=== PATIENT | male | born 1970 | race Caucasian/White ===

== ENCOUNTER 2020-06-18 05:34 | Day surgery (SDC) | payer OTHER ==
[~2020-06-18] VITALS: Ht 167.6 cm; Wt 79.5 kg
[~2020-06-18 05:34] MED LIST: RINGERS SOLUTION,LACTATED 500 ML IV ONE
[2020-06-18] MEDS ORDERED: RINGERS SOLUTION,LACTATED 0 ML IV ONE (05:35)
[2020-06-18] MEDS ORDERED: PROPOFOL 1% 20 ML VIAL IVP ONE (05:35)
[2020-06-18] MEDS ORDERED: LIDOCAINE/PF 2% 5 ML VIAL IM ONE (05:35)
[2020-06-18] MEDS ORDERED: SODIUM CHLORIDE 0.9% 500 ML IV ONE ×2 (05:56→06:15)
[2020-06-18 06:03] LABS: COVID AG,FIA SOURCE NASOPHARYNGEAL
[2020-06-18 06:26] LABS: GLUCOMETER DEV NAME(LOC) SDS.; GLUCOSE,POINT OF CARE 111 MG/DL (70-110)
[2020-06-18] MEDS ORDERED: METO25 PO (06:50)
[2020-06-18] MEDS ORDERED: LISI-893 PO (06:50)
[2020-06-18] MEDS ORDERED: AMLO-258 PO (06:50)
[2020-06-18] MEDS ORDERED: LIDOCAINE/PF 1% 2 ML VIAL ONE (06:58)
== END 2020-06-18 08:20 | disposition home or self-care (01) ==
LOC: SURGERY 05:34
PROVIDERS: ATTEND Ophthalmology
DX: E11.39 Type 2 diabetes mellitus with other diabetic ophthalmic complication (principal); H40.10X3 Unspecified open-angle glaucoma, severe stage; E11.22 Type 2 diabetes mellitus with diabetic chronic kidney disease; I12.9 Hypertensive chronic kidney disease with stage 1 through stage 4 chronic kidney disease, or unspecified chronic kidney disease; H40.1112 Primary open-angle glaucoma, right eye, moderate stage; Z98.890 Other specified postprocedural states; Z99.2 Dependence on renal dialysis; Z79.899 Other long term (current) drug therapy; E11.3593 Type 2 diabetes mellitus with proliferative diabetic retinopathy without macular edema, bilateral
CPT/HCPCS: 66710; 82962; 87426; 93005; C9803; J2704; J3490 ×2; J7040; J7120